=== PATIENT | male | born 1970 ===

== ENCOUNTER 2016-10-25 20:40 | Emergency (ER) | payer OTHER ==
--- NOTE | 2016-10-25 22:40 | DIAGNOSTIC IMAGING REPORT ---
PROCEDURE: CT ABD/PELVIS WITH CONTRAST CLINICAL INDICATION: Right lower quadrant pain. TECHNIQUE: 145 ml of Isovue 300 were injected intravenously and axial images were obtained of the entire abdomen and pelvis with sagittal and coronal reformations. COMPARISON: None. FINDINGS: ABDOMEN: Lung base are clear. Heart size is normal. Liver, gallbladder, pancreas, spleen, adrenal glands and kidneys are normal. Normal abdominal aorta. PELVIS: Normal appendix. Small amount of fluid in the cecum and sigmoid. There is no pelvic mass, free fluid or inflammatory changes. Mild degenerative changes of the spine. IMPRESSION: 1. Findings suggestive of enterocolitis 2. Normal appendix 3. Results discussed with Rebecca Avendano. All CT scans at this facility use dose modulation, iterative reconstruction, and/or weight-based dosing when appropriate to reduce radiation dose to as low as reasonably achievable.
--- NOTE | 2016-10-25 22:51 | ED ORDER SUMMARY ---
..... Patient: ERICK OSBORNE JR OrderSheet Located Within [facility] VisitID: [id number] [address] [place] [address] 46y, M Registration Date/Time: 10/25/2016 ORDER SHEET Weight: 107.9 kg (stated) Allergies: Toradol, Motrin GENERAL ORDERS: CT Abd/Pel w Cont (No) (pending) Urgent (21:10/25/2016 HBivens A.R.N.P.) (Ack 21:25 CHagerty ER Sql Ssrs Developer) (22:03 RFay) CBC w Diff Urgent (:10/25/2016 HBivens A.R.N.P.) (Ack 21:25 CHagerty ER Sql Ssrs Developer) (21:30 JQuivey R.N.) CMP Urgent (21:10/25/2016 HBivens A.R.N.P.) (Ack 21:25 CHagerty ER Sql Ssrs Developer) (21:30 JQuivey R.N.) UA-Culture if indicated Urgent (21:10/25/2016 HBivens A.R.N.P.) (Ack 21:25 CHagerty ER Sql Ssrs Developer) (22:24 DDean R.N.) Amylase Urgent (21:10/25/2016 HBivens A.R.N.P.) (Ack 21:25 CHagerty ER Sql Ssrs Developer) (21:30 JQuivey R.N.) Lipase Urgent (21:10/25/2016 HBivens A.R.N.P.) (Ack 21:25 CHagerty ER Sql Ssrs Developer) (21:30 JQuivey R.N.) MEDICATION ORDERS: IV FLUIDS: IV NS : initial bolus none -, then 500 mL/hr for X2 (NOW) (21:10/25/2016 DDean R.N. per protocol) (21:06 DDean R.N.) Zofran IV 4 mg (NOW) (21:10/25/2016 DDean R.N. per protocol) (21:06 DDean R.N.) Dilaudid IV 1 mg (HIGH ALERT MEDICATION, NOW) (21:10/25/2016 HBivens A.R.N.P.) (Ack 21:28 JQuivey R.N.) (21:30 JQuivey R.N.) Flagyl IV 500 mg/100mL (NOW) (22:50 10/25/2016 HBivens A.R.N.P.) (Ack 22:53 DDavis R.N.) (23:06 DDavis R.N.) ORDER SHEET NOTES: [Electronically signed by Joaquin Garland R.N. (00:13 10/26/2016)] [Electronically signed by Rebecca AvendanoNAlisaPAlisa (13:17 10/26/2016)] [Electronically locked/signed by Joaquin Garland R.N. (00:13 10/26/2016)]
--- NOTE | 2016-10-25 22:51 | ED ORDER SUMMARY ---
..... Patient: ERICK OSBORNE JR OrderSheet [facility] VisitID: [id number] [address] [place] [address] 46y, M Registration Date/Time: 10/25/2016 ORDER SHEET Weight: 107.9 kg (stated) Allergies: Toradol, Motrin GENERAL ORDERS: CT Abd/Pel w Cont (No) (pending) Urgent (21:10/25/2016 HBivens A.R.N.P.) (Ack 21:25 CHagerty ER Animal Nutrition Teacher) (22:03 RFay) CBC w Diff Urgent (:10/25/2016 HBivens A.R.N.P.) (Ack 21:25 CHagerty ER Animal Nutrition Teacher) (21:30 JQuivey R.N.) CMP Urgent (21:10/25/2016 HBivens A.R.N.P.) (Ack 21:25 CHagerty ER Animal Nutrition Teacher) (21:30 JQuivey R.N.) UA-Culture if indicated Urgent (21:10/25/2016 HBivens A.R.N.P.) (Ack 21:25 CHagerty ER Animal Nutrition Teacher) (22:24 DDean R.N.) Amylase Urgent (21:10/25/2016 HBivens A.R.N.P.) (Ack 21:25 CHagerty ER Animal Nutrition Teacher) (21:30 JQuivey R.N.) Lipase Urgent (21:10/25/2016 HBivens A.R.N.P.) (Ack 21:25 CHagerty ER Animal Nutrition Teacher) (21:30 JQuivey R.N.) MEDICATION ORDERS: IV FLUIDS: IV NS : initial bolus none -, then 500 mL/hr for X2 (NOW) (21:10/25/2016 DDean R.N. per protocol) (21:06 DDean R.N.) Zofran IV 4 mg (NOW) (21:10/25/2016 DDean R.N. per protocol) (21:06 DDean R.N.) Dilaudid IV 1 mg (HIGH ALERT MEDICATION, NOW) (21:10/25/2016 HBivens A.R.N.P.) (Ack 21:28 JQuivey R.N.) (21:30 JQuivey R.N.) Flagyl IV 500 mg/100mL (NOW) (22:50 10/25/2016 HBivens A.R.N.P.) (Ack 22:53 DDavis R.N.) (23:06 DDavis R.N.) ORDER SHEET NOTES: [Electronically signed by Joaquin Garland R.N. (00:13 10/26/2016)] [Electronically signed by Rebecca AvendanoNAlisaPAlisa (13:17 10/26/2016)] [Electronically locked/signed by Joaquin Garland R.N. (00:13 10/26/2016)]
--- NOTE | 2016-10-25 22:51 | ED NURSING NOTES ---
Clinical Report - Nurses [place] [address] [place] [address] 10/25/2016 20:42 Patient: ERICK OSBORNE JR TRIAGE Triage time 20:45. Acuity: LEVEL 3. Chief Complaint: ABDOMINAL PAIN and DIARRHEA and (RLQ abdominal pain). Alert. WILLIS COMA SCORE: [place] Coma Scale: 15- eyes open spontaneously (4); best verbal response- oriented x 4 (5); best motor response- obeys commands (6). --20:48 Joaquin Garland R.N. 20:45 10/25/16. BP: 145/93. HR: 71. RR: 24. O2 saturation: 95% on room air. Temp: 98.7 F. Pain level now: 12/20. --20:48 Joaquin Garland R.N. Weight: 107.9 kg stated. Height/Length: 67 inches Per Patient. BMI: 37.3. --20:48 Joaquin Garland R.N. Medications No medications currently. --20:50 Joaquin Garland R.N. Allergies Toradol. --20:50 Joaquin Garland R.N. Motrin. --20:50 Joaquin Garland R.N. History Arrived by EMS. Historian: patient. Accompanied by family. This started yesterday. ( Watery BM for 5 days). He has had nausea and diarrhea. ( Last BM 6pm today "watery".). SOCIAL HX: Never smoker. History of occasional drug use: marijuana. No alcohol use. SELF HARM ASSESSMENT: A self harm assessment was performed. The patient answered "no" to the question "Do you have thoughts of harming or killing yourself?". FALL RISK ASSESSMENT: Fall risk assessment completed. No fall risk identified. NUTRITIONAL RISK ASSESSMENT: The nutritional risk assessment revealed no deficiencies. FUNCTIONAL ASSESSMENT: Functional assessment: no impairments noted. LEARNING NEEDS ASSESSMENT: The learning needs assessment revealed no barriers. SKIN INTEGRITY ASSESSMENT: Skin integrity risk assessment completed. No skin integrity risk identified. --20:48 Joaquin Garland R.N. PROBLEMS: Colon Polyps. --20:51 Joaquin Garland R.N. ADDITIONAL SURGERIES: Colonoscopic polypectomy. Colonoscopy. --20:51 Joaquin Garland R.N. Interventions ID band on patient. To treatment room. --20:48 Joaquin Garland R.N. PHYSICAL ASSESSMENT Ambulatory to room. GENERAL / NEURO / PSYCH: Alert. Oriented X 4. HEENT: Mucous membranes are pink. RESPIRATORY: Respirations not labored. CVS: Capillary refill less than 2 seconds. GI / : Abdomen soft. Abdominal tenderness in the right lower quadrant. SKIN: Skin is warm and dry. --20:49 Joaquin Garland R.N. ( Patient sleeping in bed, awakes spontaneously.). --00:01 Joaquin Garland R.N. 00:01 10/26/16. BP: 122/78. HR: 82. RR: 18 (regular and unlabored). O2 saturation: 95% on room air. --00:01 Joaquin Garland R.N. NURSING PROGRESS NOTES Patient gowned. Head of bed elevated. Reassurance given. Two patient identifiers checked. Call light placed in reach. Side rails up x 1. Bed placed in lowest position. Brakes of bed on. Patient ready for evaluation- chart flagged. Patient waiting for evaluation. --20:52 Joaquin Garland R.N. 20:55 10/25/2016 Site #1 started via IV in the right antecubital space with an 20g angiocath, with aseptic technique and good blood return; one attempt. Blood drawn: rainbow set. Labeled in the presence of the patient and sent to the lab. Saline lock flushed with 10 mL saline. --21:04 Brittany Perkins R.N. 20:55. Care transferred and report received. --21:04 Brittany Perkins R.N. 21:06 10/25/2016 Started bag #1 1000 mL IV Fluids IV NS (Saline); at 500 mL/hr over 2 hour(s) via site #1 via IV pump. --21:06 Brittany Perkins R.N. 21:06 10/25/2016 Zofran (Ondansetron HCl) IVP 4 mg given over 1 minute(s) via site #1. IV patency established. IV site checked: no pain, redness, or swelling. IV flushed thoroughly pre- and post-medication administration. IVP given by RN. --21:06 Brittany Perkins R.N. ( Report given to Brittany Perkins, RN). --21:09 Stacey Payne R.N. 21:28 10/25/2016 Dilaudid (HYDROmorphone HCl PF) IVP 1 mg given over 2 minute(s) via site #1. Allergies verified, confirmed 5 rights and sedative warning given to the patient and patient's family. IV patency established. IV site checked: no pain, redness, or swelling. IV flushed thoroughly pre- and post-medication administration. --21:30 Shine Tamayo R.N. 21:45. Reassessment after medication administered. He is calm and resting quietly. Overall patient status is the same- he states feels the same (states pain is still 6/10). --21:52 Brittany Perkins R.N. 21:48. Patient transported to [place] by stretcher with tech. --21:52 Brittany Perkins R.N. 22:00 10/25/16. BP: 135/78. HR: 82. RR: 18. O2 saturation: 98% on room air. Temp: deferred. Pain level now: 3/10. Additional comments: Pt resting quietly in dark room, at bedside. pt states pain is better 3/10 waiting for radiologist report . --22:15 Brittany Perkins R.N. 22:20. Patient ID band checked for patient name and birthdate: patient confirmed. Clean catch urine collected with return of yellow-colored clear urine; sample sent to lab for urinalysis and culture. Specimen labeled in the presence of the patient (voided 250cc at bedside). --22:23 Brittany Perkins R.N. ( Report received from Brittany Perkins, RN). --22:26 Joaquin Garland R.N. 22:06 10/25/2016 IV Fluids IV NS Discontinued: completed. Total amount infused: 2206 mL. IV patency established. IV site checked: no pain, redness, or swelling. IV flushed thoroughly. --00:12 Joaquin Garland R.N. 23:05 10/25/2016 Started 500 mg of Flagyl (MetroNIDAZOLE in NaCl) IVPB in bag #1 100 mL; at 100 mg/hr over 1 hour(s) via site #1 via IV pump. Allergies verified and confirmed 5 rights. IV patency established. IV site checked: no pain, redness, or swelling. IV flushed thoroughly pre- and post-medication administration. --23:06 Joaquin Garland R.N. 00:05 10/26/2016 Flagyl IVPB Discontinued: completed. Total amount infused: 100 mL. IV patency established. IV site checked: no pain, redness, or swelling. IV flushed thoroughly. --00:13 Joaquin Garland R.N. DISPOSITION / DISCHARGE 00:10 10/26/2016 Site #1 removed upon discharge. --00:10 Joaquin Garland R.N. Departure time: 00:11. Condition at departure: improved and stable. No learning barriers present. Discharge instructions provided and reviewed with the patient. Reviewed warnings. Reviewed medication(s) side effects, precautions, dosing and course information. Prescription(s) given to the patient. Treatments reviewed. Reviewed referrals for followup. Patient verbalized understanding. Written instructions provided in Armenian. The patient was discharged home and accompanied by hepatology physician. He left the Emergency Department ambulatory and via private vehicle. Vendor Analyst driving. --00:12 Joaquin Garland R.N. 00:01 10/26/16. BP: 122/78. HR: 82. RR: 18 (regular and unlabored). O2 saturation: 95% on room air. --00:12 Joaquin Garland R.N. 00:13 10/26/16. Pain level now: 09/19. --00:13 Joaquin Garland R.N. Locked/Released at 10/26/2016 0:13 by Joaquin Garland R.N.
--- NOTE | 2016-10-25 22:51 | ED CLINICAL REPORT ---
Clinical Report - Physicians/Mid Levels [facility] [address] [place] [address] 10/25/2016 20:42 Patient: ERICK OSBORNE JR Time Seen: 21:09; initial patient contact, initial documentation, patient care assumed. Arrived- By ambulance. Historian- patient. HISTORY OF PRESENT ILLNESS Chief Complaint: ABDOMINAL PAIN. At its maximum, severity described as severe. When seen in the E.D., severity described as severe. Modifying factors. Not worsened by anything. Not relieved by anything. This started about 5 days ago and is still present. It was abrupt in onset and has been constant. It is described as "pain" and it is described as located in the right lower quadrant. The patient has had nausea. No loss of appetite or vomiting. He has had severe diarrhea. This has occurred numerous times. It has been watery. No bloody, mucous containing or blood-tinged diarrhea. Similar symptoms previously: None. Recent medical care: Not recently seen/assessed. REVIEW OF SYSTEMS No constipation, black stools, hematemesis, difficulty with urination or pain with urination. No urinary frequency, bloody stools, fever, chest pain or difficulty breathing. He has had chills. All systems otherwise negative, except as recorded above. PAST HISTORY See nurses notes. PROBLEMS: Colon Polyps. --20:51 Joaquin Garland RAlisaN. ADDITIONAL SURGERIES: Colonoscopic polypectomy. Colonoscopy. --20:51 Joaquin Garland RAlisaN. SOCIAL HISTORY Never smoker. History of occasional drug use: marijuana. No alcohol use. No recent travel. Is a local resident. FAMILY HISTORY Negative. ADDITIONAL NOTES The nursing notes have been reviewed with agreement regarding the chief complaint, HPI, ROS, PMH and patient medications and allergies. PHYSICAL EXAM Vital Signs: 10/25/2016 20:45 BP: 145/93. HR: 71. RR: 24. O2 saturation: 95%. Temp: 98.7 F. Pain level now: 6/10. Have been reviewed as normal and appear to be correct. Appearance: Alert. Oriented X3. No acute distress. Eyes: Pupils equal, round and reactive to light. Eyes normal inspection. Neck: Normal inspection. Neck supple. CVS: Normal heart rate and rhythm. Heart sounds normal. Pulses normal. Respiratory: No respiratory distress. Breath sounds normal. Chest nontender. Abdomen: Soft. Tenderness in the right lower quadrant. No guarding, rebound tenderness or Estrada's, obturator or psoas sign present. Bowel sounds normal. No organomegaly. No mass. Moderately obese. Tenderness present. Back: Normal inspection. Skin: Skin warm and dry. Normal skin color. No rash. Normal skin turgor. Extremities: Extremities exhibit normal ROM. No lower extremity edema. Neuro: Oriented X 3. No motor deficit. No sensory deficit. LABS, X-RAYS, AND EKG Abdominal CT: . IMPRESSION: 1. Findings suggestive of enterocolitis 2. Normal appendix 3. Results discussed with Rebecca Avendano. All CT scans at this facility use dose modulation, iterative reconstruction, and/or weight-based dosing when appropriate to reduce radiation dose to as low as reasonably achievable. Electronically Final signed by:Hiro Beck MD 10/25/2016 10:39:53 PM. The study was interpreted by the radiologist and discussed with the radiologist. Interpretation time: 22:40. Laboratory Tests: UA-Culture if indicated: (ABNER: 10/25/2016 22:20) ( [facility] [place] 22:26) IP Test Result Flag Units (Reference) URINE COLOR YELLOW URINE APPEARANCE CLEAR URINE GLUCOSE NEGATIVE (NEGATIVE) URINE BILIRUBIN NEGATIVE (NEGATIVE) URINE KETONE NEGATIVE (NEGATIVE) URINE SPECIFIC GRAVITY 1.015 (1.010-1.030) URINE PH 6.0 (5.0-8.0) URINE PROTEIN NEGATIVE (NEGATIVE) URINE UROBILINOGEN 0.2 EU/dL (0.2-1.0) URINE NITRITE NEGATIVE (NEGATIVE) URINE BLOOD NEGATIVE (NEGATIVE) URINE LEUK ESTERASE NEGATIVE (NEGATIVE) CBC w Diff: (ABNER: 10/25/2016 20:55) ( [facility] [place]:00) Final results Test Result Flag Units (Reference) WHITE BLOOD COUNT 10.0 K/uL (4.5-11.5) RED BLOOD COUNT 5.19 M/uL (4.50-5.90) HEMOGLOBIN 14.4 gm/dL (13.5-17.5) HEMATOCRIT 43.6 % (41.0-53.0) MEAN CELL VOLUME 84 fL (80-100) MEAN CORPUSCULAR HGB 28 pg (26-34) MEAN CORPUSCULAR HGB CONC 33 g/dL (31-37) RED CELL DISTRIBUTION WIDTH 14.1 % (11.6-14.8) PLATELET COUNT 301 K/uL (150-400) NEUTROPHIL % 69.1 % (50-75) LYMPH % 20.9 L % (25-40) MONO % 6.7 % (3-14) EOSINOPHIL % 2.7 % (0-4) BASOPHIL % 0.6 % (0-2) CMP: (ABNER: 10/25/2016 20:55) ( [facility] 10/25/2016 22:06) Final results Test Result Flag Units (Reference) GLUCOSE 98 mg/dL (70-110) BUN 12 mg/dL (7-18) CREATININE 0.9 mg/dL (0.6-1.3) Estimated GFR >60 mL/min Estimated GFR- >60 mL/min Note: Persistent reduction over 3 months in eGFR<60 mL/min/1.73 m2 defines CKD. Patients with eGFR values>=60 mL/min/1.73 m2 may also have CKD if evidence ofpersistent proteinuria. Additional information may be foundat www.kidney.org. SODIUM 143 mmol/L (136-145) POTASSIUM 3.6 mmol/L (3.5-5.1) CHLORIDE 105 mmol/L (98-107) CARBON DIOXIDE 26 mmol/L (21-32) CALCIUM 8.4 L mg/dL (8.5-10.1) TOTAL PROTEIN 7.5 g/dL (6.4-8.2) ALBUMIN 3.4 g/dL (3.3-5.0) BILIRUBIN, TOTAL 0.2 mg/dL (0.0-1.0) ALKALINE PHOSPHATASE 94 U/L (46-116) AST (SGOT) 17 U/L (15-37) ALT (SGPT) 27 U/L (12-78) LIPASE 254 U/L (73-393) AMYLASE 34 U/L (25-115) . PROGRESS AND PROCEDURES Course of Care: 22:18 10/25/16. pt has thuan for #6 er visits, see report for full details. Patient counseled in person regarding the patient's stable condition, test results and diagnosis. 22:41. Differential Diagnosis: I considered infectious etiology, inflammatory etiology, Crohn's disease, ulcerative colitis, diverticulitis, neoplastic etiology, carcinoid tumor, mechanical etiology, small bowel obstruction, colon cancer, fecal incontinence, fecal impaction, irritable bowel syndrome and gallbladder disease as a possible cause of diarrhea in this patient. This is a partial list of diagnoses considered. (jomary, dehydration). Above considerations are based on history, physical exam, reassessment, laboratory data and other information. Differential diagnosis was discussed with patient. Disposition: Discharged home in good and improved condition (22:50). Condition: good and stable. CLINICAL IMPRESSION Diarrhea Acute inflammatory colitis; infectious colitis. INSTRUCTIONS (over the counter diarrhea medicine, as discussed). Warnings: GENERAL WARNINGS: Return or contact your physician immediately if your condition worsens or changes unexpectedly, if not improving as expected, or if other problems arise. SPECIFICALLY, return if you develop pain in the abdomen or pelvis, fever, the inability to keep fluids down, blood in vomitus, blood in diarrhea, fainting or lightheadedness. Prescription Medications: Flagyl 500 mg: Take 1 tablet orally every 12 hours for 7 days. No refill. Substitution is permissible. [place] 5 mg / 325 mg tablets: take 1 to 2 orally every 6 hours as needed for pain. Dispense fifteen (15). No refills. Substitution is permissible. Follow-up: Follow up with your doctor Thursday even if well. Call for an appointment. Summary of care provided to patient. Understanding of the discharge instructions verbalized by patient. (Electronically signed by Rebecca Avendano A.R.N.P. 10/26/2016 13:17)
--- NOTE | 2016-10-26 13:17 | ED MED RECONCILIATION SUMMARY ---
Patient: ERICK OSBORNE JR Medication Reconciliation Report [facility] VisitID: [id number] [address] [place] [address] 46y, M Registration Date/Time: 10/25/2016 Weight: 107.9 kg Height/Length: 67 in. BMI: 37.3 ALLERGIES: Motrin, Toradol The patient's Home Medications are listed below: THE FOLLOWING MEDICATIONS NEED TO BE RECONCILED: No medications currently The source(s) of the original Home Medication information: Not obtained. The following Medications were given to the patient in the Emergency Department: IV NS IV Fluids bolus 0, then 500 mL/hr, administered: 10/25/2016 9:06:00 PM Zofran [IVP] IVP 4 mg, administered: 10/25/2016 9:06:00 PM Dilaudid [IVP] IVP 1 mg, administered: 10/25/2016 9:28:00 PM Flagyl [IVPB] IVPB bolus 0, then 500 mg 100 mg/hr, administered: 10/25/2016 11:05:00 PM The following Medications were prescribed to the patient: Flagyl 500 mg: Take 1 tablet orally every 12 hours for 7 days. No refill. Substitution is permissible. -- Rebecca Avendano, Afua.R.N.P. Delta 5 mg / 325 mg tablets: take 1 to 2 orally every 6 hours as needed for pain. Dispense fifteen (15). No refills. Substitution is permissible. -- Rebecca Avendano A.R.N.P.
--- NOTE | 2016-10-26 13:17 | ED DISCHARGE INSTRUCTIONS ---
Patient: ERICK OSBORNE JR General Instructions [facility] VisitID: [id number] [place] [address] 46y, M Registration Date/Time: 10/25/2016 Diarrhea Acute inflammatory colitis; infectious colitis. INSTRUCTIONS (over the counter diarrhea medicine, as discussed). Warnings: GENERAL WARNINGS: Return or contact your physician immediately if your condition worsens or changes unexpectedly, if not improving as expected, or if other problems arise. SPECIFICALLY, return if you develop pain in the abdomen or pelvis, fever, the inability to keep fluids down, blood in vomitus, blood in diarrhea, fainting or lightheadedness. Prescription Medications: Flagyl 500 mg: Take 1 tablet orally every 12 hours for 7 days. No refill. Substitution is permissible. [place] 5 mg / 325 mg tablets: take 1 to 2 orally every 6 hours as needed for pain. Dispense fifteen (15). No refills. Substitution is permissible. Follow-up: Follow up with your doctor Thursday even if well. Call for an appointment. Summary of care provided to patient. Understanding of the discharge instructions verbalized by patient. ADDITIONAL INFORMATION Diarrhea, Uncertain Cause (Adult, Report Pending) Diarrhea has several possible causes. Commonstomach fluis caused by a virus. Food poisoning, bacteria or parasites are other causes for diarrhea. Only diarrhea caused by bacteria or parasites requires treatment with an antibiotic. Diarrhea from a virus or food poisoning improves with simple home treatment. A stool sample is needed to make the diagnosis of an infection with bacteria or parasites. Up to three stool specimens may be required to diagnose This may take up to two days to get the result. It may be necessary to wait until the stool test is complete to make the diagnosis and select the best antibiotic to prescribe. Home Care: If symptoms are severe, rest at home for the next 24 hours or until you are feeling better. You may use acetaminophen (Tylenol) or ibuprofen (Motrin, Advil) to control fever, unless another medicine was prescribed. [NOTE: If you have chronic liver or kidney disease or ever had a stomach ulcer or GI bleeding, talk with your doctor before using these medicines.] (Aspirin should never be used in anyone under 18 years of age who is ill with a fever. It may cause severe liver damage.) Avoid tobacco, caffeine and alcohol, which may worsen your symptoms. If anti-diarrhea medicine was prescribed, take this only as directed. Sometimes anti-diarrhea medicine can make your condition worse if the cause is an infectious diarrhea. Therefore, anti-diarrhea medicine should not be taken for this condition unless advised by your doctor. During The First 12-24 Hours follow the diet below: BEVERAGES: Sport drinks like Gatorade, soft drinks without caffeine; moy jamshid, mineral water (plain or flavored), decaffeinated tea and coffee. SOUPS: Clear broth, consomm and bouillon DESSERTS: Plain gelatin (Jell-O), popsicles and fruit juice bars. During The Next 24 Hours you may add the following to the above: Hot cereal, plain toast, bread, rolls, crackers Plain noodles, rice, mashed potatoes, chicken noodle or rice soup Unsweetened canned fruit (avoid pineapple), bananas Limit fat intake to less than 15 grams per day by avoiding margarine, butter, oils, mayonnaise, sauces, gravies, fried foods, peanut butter, meat, poultry and fish. Limit fiber; avoid raw or cooked vegetables, fresh fruits (except bananas) and bran cereals. Limit caffeine and chocolate. No spices or seasonings except salt. During The Next 24 Hours Gradually resume a normal diet, as you feel better and your symptoms lessen. Follow Up with your doctor or as advised if you are not improving over the next two days. If you were asked to bring a specimen from home, bring the sample on the day of collection. You may call in 2 days (or as directed) for the results. Get Prompt Medical Attention if any of the following occur: Increasing abdominal pain or constant lower right abdominal pain Continued vomiting (unable to keep liquids down) Frequent diarrhea (more than 5 times a day) Blood in vomit or stool (black or red color) Reduced oral intake Dark urine, reduced urine output Weakness, dizziness, fainting Drowsiness, confusion, stiff neck or seizure Fever of 100.4F (38C) oral or higher, not better with fever medication New rash Metronidazole Oral tablet What is this medicine? METRONIDAZOLE (me troe NI da zole) is an antiinfective. It is used to treat certain kinds of bacterial and protozoal infections. It will not work for colds, flu, or other viral infections. How should I use this medicine? Take this medicine by mouth with a full glass of water. Follow the directions on the prescription label. Take your medicine at regular intervals. Do not take your medicine more often than directed. Take all of your medicine as directed even if you think you are better. Do not skip doses or stop your medicine early. Talk to your forms examiner regarding the use of this medicine in children. Special care may be needed. What side effects may I notice from receiving this medicine? Side effects that you should report to your doctor or health home visit field care manager as soon as possible: allergic reactions like skin rash or hives, swelling of the face, lips, or tongue confusion, clumsiness difficulty speaking discolored or sore mouth dizziness fever, infection numbness, tingling, pain or weakness in the hands or feet trouble passing urine or change in the amount of urine redness, blistering, peeling or loosening of the skin, including inside the mouth seizures unusually weak or tired vaginal irritation, dryness, or discharge Side effects that usually do not require medical attention (report to your doctor or health home visit field care manager if they continue or are bothersome): diarrhea headache irritability metallic taste nausea stomach pain or cramps trouble sleeping What may interact with this medicine? Do not take this medicine with any of the following medications: alcohol or any product that contains alcohol amprenavir oral solution cisapride disulfiram dofetilide dronedarone paclitaxel injection pimozide ritonavir oral solution sertraline oral solution sulfamethoxazole-trimethoprim injection thioridazine ziprasidone This medicine may also interact with the following medications: cimetidine lithium other medicines that prolong the QT interval (cause an abnormal heart rhythm) phenobarbital phenytoin warfarin What if I miss a dose? If you miss a dose, take it as soon as you can. If it is almost time for your next dose, take only that dose. Do not take double or extra doses. Where should I keep my medicine? Keep out of the reach of children. Store at room temperature below 25 degrees C (77 degrees F). Protect from light. Keep container tightly closed. Throw away any unused medicine after the expiration date. What should I tell my health care provider before I take this medicine? They need to know if you have any of these conditions: anemia or other blood disorders disease of the nervous system fungal or yeast infection if you drink alcohol containing drinks liver disease seizures an unusual or allergic reaction to metronidazole, or other medicines, foods, dyes, or preservatives or trying to get breast-feeding What should I watch for while using this medicine? Tell your doctor or health home visit field care manager if your symptoms do not improve or if they get worse. You may get drowsy or dizzy. Do not drive, use machinery, or do anything that needs mental alertness until you know how this medicine affects you. Do not stand or sit up quickly, especially if you are an older patient. This reduces the risk of dizzy or fainting spells. Avoid alcoholic drinks while you are taking this medicine and for three days afterward. Alcohol may make you feel dizzy, sick, or flushed. If you are being treated for a sexually transmitted disease, avoid sexual contact until you have finished your treatment. Your sexual partner may also need treatment. Hydrocodone Bitartrate, Acetaminophen Oral tablet What is this medicine? ACETAMINOPHEN; HYDROCODONE (a set a CLAUDETTE luz fen; [place] droe KOE done) is a pain reliever. It is used to treat mild to moderate pain. How should I use this medicine? Take this medicine by mouth. Swallow it with a full glass of water. Follow the directions on the prescription label. If the medicine upsets your stomach, take the medicine with food or milk. Do not take more than you are told to take. Talk to your forms examiner regarding the use of this medicine in children. This medicine is not approved for use in children. What side effects may I notice from receiving this medicine? Side effects that you should report to your doctor or health home visit field care manager as soon as possible: allergic reactions like skin rash, itching or hives, swelling of the face, lips, or tongue breathing problems confusion feeling faint or lightheaded, falls stomach pain yellowing of the eyes or skin Side effects that usually do not require medical attention (report to your doctor or health home visit field care manager if they continue or are bothersome): nausea, vomiting stomach upset What may interact with this medicine? alcohol antihistamines isoniazid medicines for depression, anxiety, or psychotic disturbances medicines for sleep muscle relaxants naltrexone narcotic medicines (opiates) for pain phenobarbital ritonavir tramadol What if I miss a dose? If you miss a dose, take it as soon as you can. If it is almost time for your next dose, take only that dose. Do not take double or extra doses. Where should I keep my medicine? Keep out of the reach of children. This medicine can be abused. Keep your medicine in a safe place to protect it from theft. Do not share this medicine with anyone. Selling or giving away this medicine is dangerous and against the law. Store at room temperature between 15 and 30 degrees C (59 and 86 degrees F). Protect from light. Keep container tightly closed. Throw away any unused medicine after the expiration date. Discard unused medicine and used packaging carefully. Pets and children can be harmed if they find used or lost packages. What should I tell my health care provider before I take this medicine? They need to know if you have any of these conditions: brain tumor Crohn's disease, inflammatory bowel disease, or ulcerative colitis drink more than 3 alcohol-containing drinks per day drug abuse or addiction head injury heart or circulation problems kidney disease or problems going to the bathroom liver disease lung disease, asthma, or breathing problems an unusual or allergic reaction to acetaminophen, hydrocodone, other opioid analgesics, other medicines, foods, dyes, or preservatives or trying to get breast-feeding What should I watch for while using this medicine? Tell your doctor or health home visit field care manager if your pain does not go away, if it gets worse, or if you have new or a different type of pain. You may develop tolerance to the medicine. Tolerance means that you will need a higher dose of the medicine for pain relief. Tolerance is normal and is expected if you take the medicine for a long time. Do not suddenly stop taking your medicine because you may develop a severe reaction. Your body becomes used to the medicine. This does NOT mean you are addicted. Addiction is a behavior related to getting and using a drug for a non-medical reason. If you have pain, you have a medical reason to take pain medicine. Your doctor will tell you how much medicine to take. If your doctor wants you to stop the medicine, the dose will be slowly lowered over time to avoid any side effects. You may get drowsy or dizzy when you first start taking the medicine or change doses. Do not drive, use machinery, or do anything that may be dangerous until you know how the medicine affects you. Stand or sit up slowly. There are different types of narcotic medicines (opiates) for pain. If you take more than one type at the same time, you may have more side effects. Give your health care provider a list of all medicines you use. Your doctor will tell you how much medicine to take. Do not take more medicine than directed. Call emergency for help if you have problems breathing. The medicine will cause constipation. Try to have a bowel movement at least every 2 to 3 days. If you do not have a bowel movement for 3 days, call your doctor or health home visit field care manager. Too much acetaminophen can be very dangerous. Do not take Tylenol (acetaminophen) or medicines that contain acetaminophen with this medicine. Many non-prescription medicines contain acetaminophen. Always read the labels carefully. You have been given the following additional information: Diarrhea, Unk Cause (Adult) Report Pendg Metronidazole Oral tablet Hydrocodone Bitartrate, Acetaminophen Oral tablet (Electronically signed by Rebecca Avendano A.R.N.P. 10/26/2016 13:17)
--- NOTE | 2016-10-26 13:17 | ED MED RECONCILIATION SUMMARY ---
Patient: ERICK OSBORNE JR Medication Reconciliation Report [facility] VisitID: [id number] [address] [place] [address] 46y, M Registration Date/Time: 10/25/2016 Weight: 107.9 kg Height/Length: 67 in. BMI: 37.3 ALLERGIES: Motrin, Toradol The patient's Home Medications are listed below: THE FOLLOWING MEDICATIONS NEED TO BE RECONCILED: No medications currently The source(s) of the original Home Medication information: Not obtained. The following Medications were given to the patient in the Emergency Department: IV NS IV Fluids bolus 0, then 500 mL/hr, administered: 10/25/2016 9:06:00 PM Zofran [IVP] IVP 4 mg, administered: 10/25/2016 9:06:00 PM Dilaudid [IVP] IVP 1 mg, administered: 10/25/2016 9:28:00 PM Flagyl [IVPB] IVPB bolus 0, then 500 mg 100 mg/hr, administered: 10/25/2016 11:05:00 PM The following Medications were prescribed to the patient: Flagyl 500 mg: Take 1 tablet orally every 12 hours for 7 days. No refill. Substitution is permissible. -- Rebecca Avendano, Afua.R.N.P. [place] 5 mg / 325 mg tablets: take 1 to 2 orally every 6 hours as needed for pain. Dispense fifteen (15). No refills. Substitution is permissible. -- Rebecca Avendano A.R.N.P.
--- NOTE | 2016-10-26 13:17 | ED MAR SUMMARY ---
..... Medication Administration Record [facility] [address] [place] [place] [address] Patient: ERICK OSBORNE Visit ID: [id number] 46y, M Weight: 107.9 kg Height/Length: 67 in BMI: 37.3 ALLERGIES: Motrin, Toradol Start 21:06 10/25/2016 Brittany Perkins R.N., Stop 22:06 10/25/2016 Joaquin Garland R.N. Medication Administered: IV NS (SALINE), Dose: IV Fluids over 2 hour(s), Rate: 500 mL/hr, Dispensed: 1000 mL bag, Site: #1 right AC. Medication Ordered: IV NS : initial bolus none -, then 500 mL/hr for X2 (NOW). Given 21:06 10/25/2016 Brittany Perkins R.N. Medication Administered: ZOFRAN [IVP] (ONDANSETRON HCL), Dose: 4 mg IVP over 1 minute(s), Site: #1 right AC. Medication Ordered: Zofran IV 4 mg (NOW). Given 21:28 10/25/2016 Shine Tamayo R.N. Medication Administered: DILAUDID [IVP] (HYDROMORPHONE HCL PF), Dose: 1 mg IVP over 2 minute(s), Site: #1 right AC. Medication Ordered: Dilaudid IV 1 mg (HIGH ALERT MEDICATION, NOW). Start 23:05 10/25/2016 Joaquin Garland R.N., Stop 00:05 10/26/2016 Joaquin Garland R.N. Medication Administered: FLAGYL [IVPB] (METRONIDAZOLE IN NACL), Dose: 500 mg IVPB over 1 hour(s), Rate: 100 mg/hr, Dispensed: 100 mL bag, Site: #1 right AC. Medication Ordered: Flagyl IV 500 mg/100mL (NOW).
--- NOTE | 2016-10-26 13:17 | ED MAR SUMMARY ---
..... Medication Administration Record [facility] [address] [place] [address] Patient: ERICK OSBORNE Visit ID: [id number] 46y, M Weight: 107.9 kg Height/Length: 67 in BMI: 37.3 ALLERGIES: Motrin, Toradol Start 21:06 10/25/2016 Brittany Perkins R.N., Stop 22:06 10/25/2016 Joaquin Garland R.N. Medication Administered: IV NS (SALINE), Dose: IV Fluids over 2 hour(s), Rate: 500 mL/hr, Dispensed: 1000 mL bag, Site: #1 right AC. Medication Ordered: IV NS : initial bolus none -, then 500 mL/hr for X2 (NOW). Given 21:06 10/25/2016 Brittany Perkins R.N. Medication Administered: ZOFRAN [IVP] (ONDANSETRON HCL), Dose: 4 mg IVP over 1 minute(s), Site: #1 right AC. Medication Ordered: Zofran IV 4 mg (NOW). Given 21:28 10/25/2016 Shine Tamayo R.N. Medication Administered: DILAUDID [IVP] (HYDROMORPHONE HCL PF), Dose: 1 mg IVP over 2 minute(s), Site: #1 right AC. Medication Ordered: Dilaudid IV 1 mg (HIGH ALERT MEDICATION, NOW). Start 23:05 10/25/2016 Joaquin Garland R.N., Stop 00:05 10/26/2016 Joaquin Garland R.N. Medication Administered: FLAGYL [IVPB] (METRONIDAZOLE IN NACL), Dose: 500 mg IVPB over 1 hour(s), Rate: 100 mg/hr, Dispensed: 100 mL bag, Site: #1 right AC. Medication Ordered: Flagyl IV 500 mg/100mL (NOW).
== END 2016-10-26 00:11 | disposition home or self-care (01) ==
LOC: ED SRH 20:40
DX: A09 Infectious gastroenteritis and colitis, unspecified (principal); R19.7 Diarrhea, unspecified; Z88.5 Allergy status to narcotic agent; Z79.1 Long term (current) use of non-steroidal anti-inflammatories (NSAID)
CPT/HCPCS: 90004; 90100; 92235; 92530; 95059